=== PATIENT | female | born 1995 | race Caucasian/White ===

== ENCOUNTER → 2019-05-29 | Outpatient (REF) | payer OTHER | LOC: M SFHCLERA 11:08 | PROVIDERS: ATTEND Nurse Practitioner Family | DX: J02.9 Acute pharyngitis, unspecified (principal) ==

== ENCOUNTER → 2019-07-05 | Outpatient (CLI) | payer OTHER ==
--- NOTE | 2019-07-08 22:29 | SLEEPCENT ---
DATE OF PROCEDURE: 07/05/2019 Ordered by: IRENE Moore Nocturnal polysomnography was performed for evaluation of sleep physiology in this patient with a history of snoring and comorbidities of obesity and migraine cephalgia. 7 hours and 14 minutes of data were reviewed. There were 326 minutes of sleep identified. Sleep latency was prolonged at 76 minutes. REM latency was normal at 93 minutes. Sleep architecture showed some fragmentation and poor progression. There were three REM cycles noted. Overall sleep efficiency 76%. The electrocardiogram showed a sinus rhythm with an average heart rate of 86 beats per minute. Rate ranged 60 to 102. Baseline EEG showed normal waveforms for awake and sleep stages. There were 44 respiratory events identified of 10 seconds in duration or greater for an apnea-hypopnea index of 8.1. The events were primarily obstructive, not exclusive to sleep stage nor body posture. Arousals from respiratory events were 2.8 times per hour. Saturations remained 90% plus for much of the study and there was some limb activity, but arousals from limb events were few. Snoring was noted over the entire study. IMPRESSION Mild obstructive sleep apnea syndrome (G47.33). Apnea-hypopnea index 8.1. RECOMMENDATION Given the patient's symptoms, consideration should be given to referral back to the sleep disorder center for pressure therapy. In the interim alcohol and sedative avoidance should be practiced and caution exercised during the operation of motor vehicles.
== END ==
LOC: M SLEEP 19:14
PROVIDERS: ATTEND Nurse Practitioner Family
DX: G47.33 Obstructive sleep apnea (adult) (pediatric) (principal)

== ENCOUNTER 2020-10-17 21:05 | Emergency (ER) | payer OTHER ==
[~2020-10-17] VITALS: Ht 160 cm; Wt 136.4 kg
[2020-10-17] MEDS ORDERED: MINO100C4 (21:16)
[2020-10-17] MEDS ORDERED: CYCL-707 (21:16)
[2020-10-17] MEDS ORDERED: HYDR-4570 (21:16)
[2020-10-17] MEDS ORDERED: KETO2SHA8 (21:20)
[2020-10-17] MEDS ORDERED: TRIA1CR80 (21:20)
[2020-10-17] MEDS ORDERED: KEFL500C17 PO (22:40)
[2020-10-17] MEDS ORDERED: IBUP80TA PO (22:40)
[2020-10-17] MEDS ORDERED: CEPHALEXIN 500 MG CAP PO ONE (22:45)
[2020-10-17] MEDS ORDERED: KETOROLAC 60MG 2ML VIAL IM ONE (22:45)
[2020-10-17 23:14] VITALS: BP 157/71
[2020-10-18] MEDS ORDERED: ONDA4TAB6 PO (06:54)
== END 2020-10-17 23:42 | disposition home or self-care (01) ==
LOC: M ED 21:05
DX: L73.9 Follicular disorder, unspecified (principal); Z79.899 Other long term (current) drug therapy; Z79.2 Long term (current) use of antibiotics
CPT/HCPCS: 96372; 99283; J1885